=== PATIENT | male | born 1955 | race Caucasian/White ===

== ENCOUNTER 2021-01-24 10:27 | Outpatient (CLI) | payer MEDICARE ==
[2021-01-24 18:29] LABS: SARS-CoV-2 PCR by NAA Not Detected (NotDetected)
== END 2021-01-24 10:28 | disposition home or self-care (01) ==
LOC: CSHLAB 10:27
PROVIDERS: ATTEND Internal Medicine Gastroenterology
DX: Z20.822 Contact with and (suspected) exposure to COVID-19 (principal); D50.9 Iron deficiency anemia, unspecified; K63.5 Polyp of colon
CPT/HCPCS: 87635; U0003; U0005

== ENCOUNTER 2021-01-27 07:09 | Day surgery (SDC) | payer MEDICARE ==
[2021-01-26 09:54] VITALS: BMI 31.1
[2021-01-27] MEDS ORDERED: Lidocaine 1% MPF 2 ML VIAL ONE (07:36)
[2021-01-27] MEDS ORDERED: PROPOFOL 60 ML ONE (08:59)
[2021-01-27] MEDS ORDERED: Lidocaine 1% PF 5 ML VIAL ONE (08:59)
[2021-01-27] MEDS ORDERED: PHENYLEPHRINE-NS 100 MCG/ML 10 ML SYRINGE ONE (09:29)
== END 2021-01-27 10:47 | disposition home or self-care (01) ==
LOC: CSHSDC 07:09
PROVIDERS: ATTEND Internal Medicine Gastroenterology
DX: D50.9 Iron deficiency anemia, unspecified (principal); K74.60 Unspecified cirrhosis of liver; I85.10 Secondary esophageal varices without bleeding; D12.4 Benign neoplasm of descending colon; K76.6 Portal hypertension; K31.89 Other diseases of stomach and duodenum; D12.5 Benign neoplasm of sigmoid colon; B19.20 Unspecified viral hepatitis C without hepatic coma; K31.7 Polyp of stomach and duodenum; K64.9 Unspecified hemorrhoids
CPT/HCPCS: 88305; J2704